=== PATIENT | male | born 1945 | race Caucasian/White ===

== ENCOUNTER 2021-02-23 20:05 | Emergency (ER) | payer OTHER ==
[~2021-02-23] VITALS: Ht 175.3 cm; Wt 86.2 kg
[2021-02-23] MEDS ORDERED: IBUPROFEN 800800 M1 PO (21:43)
[2021-02-23] MEDS ORDERED: FLEXERIL PO (21:43)
[2021-02-23 21:51] VITALS: BP 160/72
== END 2021-02-23 21:51 | disposition home or self-care (01) ==
LOC: M.ERS 20:05
DX: S01.81XA Laceration without foreign body of other part of head, initial encounter (principal); S16.1XXA Strain of muscle, fascia and tendon at neck level, initial encounter; I10 Essential (primary) hypertension; W01.198A Fall on same level from slipping, tripping and stumbling with subsequent striking against other object, initial encounter; Y93.89 Activity, other specified; Y92.89 Other specified places as the place of occurrence of the external cause; Y99.9 Unspecified external cause status